=== PATIENT | male | born 1960 | race Caucasian/White ===

== ENCOUNTER 2017-12-28 10:35 | Day surgery (SDC) | payer BC ==
[~2017-12-28 10:35] MED LIST: Sodium Chloride 0.9% 10 ML Syringe FLUSH PRN; Sodium Chloride 0.9% 2.5 ML Syringe FLUSH PRN
[2017-12-28] MEDS: Lactated Ringers 1,000 ML IV SCH ×2 (11:15→17:07)
--- NOTE | 2017-12-28 11:38 | PCM.PREANE ---
Preanesthetic Assessment - Anesthesia/Transfusion/Family Hx Anesthesia History: Prior Anesthesia Without Reaction Family History of Anesthesia Reaction: No Transfusion History: No Prior Transfusion(s) Intubation History: Unknown - Review of Systems General: No Symptoms Pulmonary: No Symptoms Cardiovascular: No Symptoms Gastrointestinal: No Symptoms, Other (screening colonoscopy 10 years after first one) Neurological: No Symptoms Other: Reports: None - Physical Assessment O2 Sat by Pulse Oximetry: 98 Respiratory Rate: 16 Vital Signs: Last Vital Signs Temp 36.5 C 12/28/17 11:00 Pulse 81 12/28/17 11:00 Resp 16 12/28/17 11:00 BP 155/89 H 12/28/17 11:00 Pulse Ox 98 12/28/17 11:00 Height: 1.88 m Weight: 117.934 kg ASA Class: 2 Mental Status: Alert & Oriented x3 Airway Class: Mallampati = 2 Dentition: Reports: Bridge (fixed ) Thyro-Mental Finger Breadths: 3 Mouth Opening Finger Breadths: 3 ROM/Head Extension: Full Lungs: Clear to Auscultation, Normal Respiratory Effort Cardiovascular: Regular Rate, Regular Rhythm - Allergies Allergies/Adverse Reactions: Allergies Allergy/AdvReac Type Severity Reaction Status Date / Time Penicillins Allergy Cannot Verified 12/25/17 13:44 Remember - Blood Blood Available: No - Anesthesia Plan Pre-Op Medication Ordered: None - Acknowledgements Anesthesia Type Planned: MAC Pt an Appropriate Candidate for the Planned Anesthesia: Yes Alternatives and Risks of Anesthesia Discussed w Pt/Guardian: Yes Pt/Guardian Understands and Agrees with Anesthesia Plan: Yes PreAnesthesia Questionnaire HEENT History: Reports: Other (See Below) Other HEENT History: reading glasses, top partial Cardiovascular History: Reports: High Cholesterol, Hypertension Gastrointestinal History: Reports: GERD Musculoskeletal History: Reports: Arthritis (everyware) Endocrine/Metabolic History: Reports: Obesity/BMI 30+ - Past Surgical History Head Surgeries/Procedures: Reports: None GI Surgical History: Reports: Appendectomy, Colonoscopy (9 years ago - normal), Hernia Repair/Other Other GI Surgeries/Procedures: hx ventral hernia repair Musculoskeletal Surgical History: Reports: Arthroscopic Knee, Shoulder Surgery Other Musculoskeletal Surgeries/Procedures:: rt knee reconstruction, marvin shoulder replacements, left knee arthroscopy - SUBSTANCE USE Smoking Status *Q: Never Smoker Recreational Drug Use History: No - HOME MEDS Home Medications: Home Meds Aspirin [[place] Aspirin] 81 mg PO DAILY 12/25/17 [History] Cartilage/Collagen/Bor/Hyalur [Joint Health Tablet] 1 tab PO DAILY 12/25/17 [ History] Diclofenac Sodium [Voltaren] 75 mg PO BID 12/25/17 [History] Enalapril Maleate 20 mg PO BID 12/25/17 [History] Lansoprazole 15 mg PO DAILY 12/25/17 [History] Multivitamin [Men's Multi-Vitamin] 1 tab PO DAILY 12/25/17 [History] [place]-3/DHA/Epa/Fish Oil [[place]-3 Fish Oil 1,200 MG Sfgl] 1,200 mg PO DAILY 02/01 [History] Testosterone 3 tab PO DAILY 12/25/17 [History] Ubidecarenone [Coq-10] 100 mg PO DAILY 12/25/17 [History] amLODIPine Besylate [Amlodipine Besylate] 5 mg PO DAILY 12/25/17 [History] atorvaSTATin Calcium [Atorvastatin Calcium] 10 mg PO DAILY 12/25/17 [History] hydroCHLOROthiazide [Hydrochlorothiazide] 25 mg PO DAILY 12/25/17 [History] - CURRENT (IN HOUSE) MEDS Current Meds: Current Medications Lactated Ringer's (Ringers, Lactated) 1,000 mls @ 125 mls/hr IV ASDIRECTED [facility] Last Admin: 12/28/17 11:15 Dose: 125 mls/hr Sodium Chloride (Saline Flush) 10 ml FLUSH ASDIRECTED PRN PRN Reason: Keep Vein Open Sodium Chloride (Saline Flush) 2.5 ml FLUSH ASDIRECTED PRN PRN Reason: Keep Vein Open Sodium Chloride (Saline Flush) 10 ml FLUSH ASDIRECTED PRN PRN Reason: Keep Vein Open Sodium Chloride (Saline Flush) 2.5 ml FLUSH ASDIRECTED PRN PRN Reason: Keep Vein Open
[2017-12-28] MEDS ORDERED: Propofol 200 MG/20 ML SDV ONE (12:51)
[2017-12-28] MEDS ORDERED: Midazolam 1 MG/ML 2 ML SDV ONE (12:52)
[2017-12-28] MEDS ORDERED: Acetaminophen/HYDROcodone 325-5 MG Tab PO PRN (13:51)
--- NOTE | 2017-12-28 13:51 | PCM.OPNOTE ---
- General Post-Op/Procedure Note Date of Surgery/Procedure: 12/28/17 Operative Procedure(s): Colonoscopy Findings: 2cm pedunculated sigmoid colon polyp @ 30 cm. Diverticulosis, Grade 2 hemorrhoids Pre Op Diagnosis: Screening colonoscopy Post-Op Diagnosis: Sigmoid colon polyp, diverticulosis, grade 2 hemorrhoid Anesthesia Technique: MAC Primary Surgeon: Monica Valdez Condition: Good
--- NOTE | 2017-12-28 16:29 | PCM.SN ---
- Free Text/Narrative Note: Patient had a large polyp removed from the sigmoid colon via hot snare. There was bleeding afterwards and he developed a submucosal hematoma. At the end of the case the hematoma was not expanding and the operative field was hemostatic. He was admitted for observation overnight. He is currently stable with no abdominal pain. Monitor overnight for bloody diarrhea. Ok to have one or two bloody bowel movements, but multiple stools and any change in vitals is cause for concern. Clear liquids only tonight in case we have to emergently scope him. CBC in am and will advance diet then if that appears normal.
[2017-12-28] MEDS: Polyethylene Glycol 3350 Powder 17 GM Packet PO SCH (17:07)
[2017-12-29] MEDS: Lactated Ringers 1,000 ML IV SCH (01:34)
--- NOTE | 2017-12-29 07:46 | PCM48HPAN ---
Post Anesthesia Note - EVALUATION WITHIN 48HRS OF ANESTHETIC Vital Signs in Normal Range: Yes Patient Participated in Evaluation: Yes Respiratory Function Stable: Yes Airway Patent: Yes Cardiovascular Function Stable: Yes Hydration Status Stable: Yes Pain Control Satisfactory: Yes Nausea and Vomiting Control Satisfactory: Yes Mental Status Recovered: Yes Resp Rate: 19
[2017-12-29] MEDS: Polyethylene Glycol 3350 Powder 17 GM Packet PO SCH (08:53)
--- NOTE | 2017-12-29 11:57 | PCM.SURGPN ---
- General Info Date of Service: 12/29/17 Date of Surgery/Procedure: 12/28/17 Functional Status: Reports: Tolerating Diet, Ambulating, Urinating - Review of Systems General: Reports: No Symptoms Pulmonary: Reports: No Symptoms Cardiovascular: Reports: No Symptoms Gastrointestinal: Reports: Other (Couple loose dark maroon stools overnight ) Genitourinary: Reports: No Symptoms - Patient Data Vitals - Most Recent: Last Vital Signs Temp 36.1 C 12/29/17 07:49 Pulse 61 12/29/17 07:49 Resp 17 12/29/17 08:38 BP 134/84 12/29/17 07:49 Pulse Ox 95 12/29/17 07:49 Weight - Most Recent: 117.934 kg I&O - Last 24 Hours: Intake & Output 12/28/17 12/29/17 12/29/17 22:59 06:59 14:59 Intake Total 1854 Output Total 500 Balance 1354 Lab Results Last 24 Hrs: Laboratory Results - last 24 hr 12/29/17 12/29/17 Range/Units 04:45 11:15 WBC 7.48 (4.0-11.0) K/uL RBC 4.66 (4.50-5.90) M/uL Hgb 14.4 15.6 (13.0-17.0) g/dL Hct 40.8 (38.0-50.0) % MCV 87.6 (80.0-98.0) fL MCH 30.9 (27.0-32.0) pg MCHC 35.3 (31.0-37.0) g/dL RDW Std Deviation 41.0 (28.0-62.0) fl RDW Coeff of John Paul 13 (11.0-15.0) % Plt Count 269 (150-400) K/uL MPV 10.10 (7.40-12.00) fL Nucleated RBC % 0.0 /100WBC Nucleated RBCs # 0 K/uL Med Orders - Current: Current Medications Hydrocodone Bitart/Acetaminophen ([place] 325-5 Mg) 2 tab PO Q4H PRN PRN Reason: Pain (moderate 4-6) Lactated Ringer's (Ringers, Lactated) 1,000 mls @ 125 mls/hr IV ASDIRECTED [facility] Last Admin: 12/29/17 01:34 Dose: 125 mls/hr Polyethylene Glycol (Miralax) 17 gm PO DAILY [facility] Last Admin: 12/29/17 08:53 Dose: 17 gm Sodium Chloride (Saline Flush) 10 ml FLUSH ASDIRECTED PRN PRN Reason: Keep Vein Open Sodium Chloride (Saline Flush) 2.5 ml FLUSH ASDIRECTED PRN PRN Reason: Keep Vein Open Sodium Chloride (Saline Flush) 10 ml FLUSH ASDIRECTED PRN PRN Reason: Keep Vein Open Sodium Chloride (Saline Flush) 2.5 ml FLUSH ASDIRECTED PRN PRN Reason: Keep Vein Open Discontinued Medications Midazolam HCl (Versed 1 Mg/Ml) Confirm Administered Dose 2 mg .ROUTE .STK-MED ONE Stop: 12/28/17 12:53 Propofol (Diprivan 20 Ml) Confirm Administered Dose 400 mg .ROUTE .STK-MED ONE Stop: 12/28/17 12:52 - Exam General: Alert, Oriented Lungs: Normal Respiratory Effort Cardiovascular: Regular Rate GI/Abdominal Exam: Soft, Non-Tender, No Distention, No Mass, Other (dark brown stools ) Skin: Warm, Dry, Intact - Problem List & Annotations (1) Polyp, sigmoid colon SNOMED Code(s): 756090823 Code(s): D12.5 - BENIGN NEOPLASM OF SIGMOID COLON Status: Acute Current Visit: Yes (2) Grade II hemorrhoids SNOMED Code(s): 081108544 Code(s): K64.1 - SECOND DEGREE HEMORRHOIDS Status: Acute Current Visit: Yes (3) Diverticulosis SNOMED Code(s): 088872710 Code(s): K57.90 - DVRTCLOS OF INTEST, PART UNSP, W/O PERF OR ABSCESS W/O BLEED Status: Acute Current Visit: Yes - Problem List Review Problem List Initiated/Reviewed/Updated: No - My Orders Last 24 Hours: Active Orders 24 hr Category Date Time Status Ready for Discharge [RC] PER UNIT ROUTINE Care 12/29/17 11:52 Ordered Vital Signs [RC] PER UNIT ROUTINE Care 12/28/17 13:51 Active Regular Diet [DIET] Diet 12/29/17 Lunch Active Acetaminophen/HYDROcodone [[place] 325-5 MG] Med 12/28/17 13:51 Active 2 tab PO Q4H PRN Polyethylene Glycol 3350 [MiraLAX] Med 12/28/17 14:00 Active 17 gm PO DAILY Medication Orders Hydrocodone Bitart/Acetaminophen ([place] 325-5 Mg) 2 tab PO Q4H PRN PRN Reason: Pain (moderate 4-6) Lactated Ringer's (Ringers, Lactated) 1,000 mls @ 125 mls/hr IV ASDIRECTED [facility] Last Admin: 12/29/17 01:34 Dose: 125 mls/hr Infusion: 12/29/17 01:07 Dose: 125 mls/hr Admin: 12/28/17 17:07 Dose: 125 mls/hr Infusion: 12/28/17 17:07 Dose: 125 mls/hr Admin: 12/28/17 11:15 Dose: 125 mls/hr Polyethylene Glycol (Miralax) 17 gm PO DAILY [facility] Last Admin: 12/29/17 08:53 Dose: 17 gm Admin: 12/28/17 17:07 Dose: 17 gm Sodium Chloride (Saline Flush) 10 ml FLUSH ASDIRECTED PRN PRN Reason: Keep Vein Open Sodium Chloride (Saline Flush) 2.5 ml FLUSH ASDIRECTED PRN PRN Reason: Keep Vein Open Sodium Chloride (Saline Flush) 10 ml FLUSH ASDIRECTED PRN PRN Reason: Keep Vein Open Sodium Chloride (Saline Flush) 2.5 ml FLUSH ASDIRECTED PRN PRN Reason: Keep Vein Open - Plan Plan (Free Text/Narrative):: Patient is a 57 year old male who underwent a screening colonoscopy and had a large sigmoid colon polyp removed. This discomfort located by immediate bleeding. The bleeding stopped without further intervention however he was watched overnight. He had approximately 4 dark maroon stools last night. He was kept nothing by mouth until this morning. His hemoglobin this morning was stable. On recheck at 11:00 it is actually gone up. He had one loose brown bowel movement this morning. He is tolerating regular diet. His abdomen is soft he is otherwise asymptomatic with stable vital signs. He can be discharged home.
--- NOTE | 2017-12-29 13:07 | OR ---
SURGEON: CLARI BULL MD DATE OF PROCEDURE: 12/28/2017 PREOPERATIVE DIAGNOSIS: Screening colonoscopy. POSTOPERATIVE DIAGNOSES: 1. Grade 2 hemorrhoids. 2. Diverticulosis. 3. Large sigmoid colon polyp. PROCEDURE PERFORMED: Colonoscopy with polypectomy. ANESTHESIA: MAC. EXTENT OF EXAM: To the cecum. PREPARATION: Good. LIMITATIONS: None. INDICATIONS: The patient is a 57-year-old male, who presents for colonoscopy. He had a colonoscopy 10 years ago that was normal. He has had no changes in his bowel habits. We discussed the need for a repeat colonoscopy. We discussed the procedure, expected perioperative course, and risks including bleeding, infection, or damage to surrounding structures including perforation. The patient verbalized understanding and wishes to proceed. PROCEDURE IN DETAIL: The patient was brought into the endoscopy suite and placed in the left lateral decubitus position. A time-out was completed verifying the patient's name, age, date of , allergies, and procedure to be performed. Monitored anesthesia care was induced and continuous oxygen was provided via nasal cannula throughout the procedure. After adequate sedation was achieved, a digital rectal exam was performed. This exam revealed grade 2 internal hemorrhoids. A well lubricated colonoscope was then inserted into the rectum and advanced under direct visualization to the level of the cecum. The cecum was identified by both visual and anatomic landmarks. A photograph was taken of the cecal cap. The scope was then fully withdrawn while examining the color, texture, anatomy, and integrity of the mucosa from the cecum to the anal canal. The patient was noted to have scattered diverticula within the sigmoid colon. At 30 cm, the patient was found to have 2 to 3 cm pedunculated polyp. The abnormal appearing tissue was attached to the colonic mucosa via a long pedunculated stalk. The decision was made to loop this with a snare. Electrocautery was applied to the snare at the base of the polyp and used to transect it at the very apex of its stalk. After this was completed, bright red bleeding was noted at the base of the cauterized segment. The large polyp was looped with a snare and quickly removed. It was labeled as sigmoid colon polyp. A well lubricated colonoscope was reinserted and I went back to the site of the polypectomy. The area was copiously irrigated with normal saline until this ran clear. I then inspected the stalk. The active bleeding had stopped; however, the patient developed a submucosal hematoma at the polypectomy site. I monitored the area for approximately 10 minutes. No further bleeding was noted and the submucosal hematoma did not appear to be expanding. The base of the stalk was then inked for identification in the future. The remainder of the colon was normal. The scope was brought into the rectum and retroflexed to allow visualization of the anal canal opening. This revealed enlarged hemorrhoids. A photograph was taken. The scope was then straightened out and fully withdrawn. The cecum to anus time was greater than 20 minutes. The patient tolerated the procedure well and was taken to PACU in stable condition. ENDOSCOPIC DIAGNOSES: 1. Grade 2 hemorrhoids. 2. Diverticulosis. 3. Large polyp at 30 cm in the sigmoid colon. RECOMMENDATIONS: Given the active bleeding that was noted during the case, the patient was admitted overnight for observation. Should he develop any further bleeding, we may proceed with a repeat colonoscopy versus transferring the patient for Interventional Radiology management. KENNETH PRINGLE /[id number] [email or web address]
== END 2017-12-29 12:50 | disposition home or self-care (01) ==
LOC: MW.SDS 10:35 → MW.MS 16:11 → MW.SDS 12-29 12:50
PROVIDERS: ATTEND Surgery
DX: Z12.11 Encounter for screening for malignant neoplasm of colon (principal); D12.5 Benign neoplasm of sigmoid colon; K64.1 Second degree hemorrhoids; K57.30 Diverticulosis of large intestine without perforation or abscess without bleeding; K91.870 Postprocedural hematoma of a digestive system organ or structure following a digestive system procedure; I10 Essential (primary) hypertension; E66.9 Obesity, unspecified; E78.00 Pure hypercholesterolemia, unspecified; M19.90 Unspecified osteoarthritis, unspecified site; K21.9 Gastro-esophageal reflux disease without esophagitis; Z79.82 Long term (current) use of aspirin; Z79.899 Other long term (current) drug therapy; Z88.0 Allergy status to penicillin
CPT/HCPCS: 36415; 45385; 85018; 85027; A9270; J2250; J2704; J7120; 88305